=== PATIENT | female | born 1965 | race Caucasian/White ===

== ENCOUNTER 2020-07-18 14:22 | Inpatient (IN) | payer OTHER ==
[~2020-07-18] VITALS: Ht 165.1 cm; Wt 64.0 kg
[~2020-07-18 14:22] MED LIST: ADVAIR 250-501 EACH INH; ALBUTEROL2.5 MG/0.5 INH; ATIVAN0.5 MG PO; DYAZIDE 37.5-21 EACH PO; FLAGYL500 MG PO; FOLIC ACID1 MG PO; HYDROXYCHLOROQ200 M1 PO; IPRATROPIU0.2 MG/1 M INH; LEVAQUIN 750 M750 MG PO; METHOTREXA25 MG/1 M2 IM; MULTIVITAMINS PO; PREMARIN0.9 M1 PO; SINGULAIR 10 MG10 M1 PO; TRAMADOL 50 MG50 MG PO; VENTOLIN HFA 1818 GM INH; ZYRTEC10 MG PO
[2020-07-18 14:29] VITALS: BP 131/80
[2020-07-18 14:50] LABS: ABSOLUTE LYMPHOCYTES 0.8 thou/uL (0.8-5.3); ABSOLUTE MONOCYTES 0.8 thou/uL (0.0-1.2); ABSOLUTE NEUTROPHILS 7.9 thou/uL (1.6-8.1); BASOPHILS 0.2 %; EOSINOPHILS 0.2 %; HEMATOCRIT 41.9 % (37.0-47.0); HEMOGLOBIN 14.1 gm/dL (12.0-15.0); LYMPHOCYTES 8.2 %; MCH 31.5 pg (26.0-34.0); MCHC 33.8 g/dL (28.0-37.0); MCV 93.2 fL (80.0-100.0); MONOCYTES 7.9 %; MPV 7.3 fl. (7.2-11.1); NUCLEATED RBCS 0 /100WBC; PLATELET COUNT* 272 thou/uL (150-400); POLYS 83.5 %; RBC 4.49 mil/uL (4.20-5.00); RDW-CV 13.6 % (10.5-14.5); WBC 9.5 thou/uL (4.0-11.0)
[2020-07-18 14:59] LABS: CALCIUM 8.8 mg/dL (8.5-10.1); POTASSIUM 3.2 mmol/L (3.5-5.1)
[2020-07-18 15:10] LABS: ALBUMIN 3.7 g/dL (3.4-5.0); MAGNESIUM 1.7 mg/dL (1.8-2.4); TOTAL BILIRUBIN 0.4 mg/dL (<0.1-1.0); TOTAL PROTEIN 7.2 g/dL (6.4-8.2)
[2020-07-18 17:17] LABS: BE 2.2 mmol/L (-2 to +3); pH 7.454 (7.340-7.450)
[2020-07-18 17:19] LABS: PO2 55.6 mmHg (75.0-100.0)
[2020-07-18 19:29] VITALS: BP 139/70
[2020-07-18 20:00] VITALS: BP 110/61
[2020-07-18] MEDS ORDERED: RINVOQ ER15 MG PO (20:59)
[2020-07-18] MEDS ORDERED: OSTERA TABLET1 EAC1 PO (21:00)
[2020-07-18] MEDS ORDERED: PROBIOTIC1 EAC7 PO (21:01)
[2020-07-19] VITALS: BP 102/52
[2020-07-19 04:00] VITALS: BP 111/73
[2020-07-19 04:59] LABS: CALCIUM 8.5 mg/dL (8.5-10.1); CREATININE 0.7 mg/dL (0.6-1.3); MAGNESIUM 2.1 mg/dL (1.8-2.4); POTASSIUM 3.2 mmol/L (3.5-5.1)
[2020-07-19 08:00] VITALS: BP 112/55
[2020-07-19 12:00] VITALS: BP 131/56
[2020-07-19 16:00] VITALS: BP 126/64
--- NOTE | 2020-07-19 17:53 | EKG ---
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
[2020-07-19 20:00] VITALS: BP 106/61
[2020-07-20] VITALS: BP 99/49
[2020-07-20 04:00] VITALS: BP 97/52
[2020-07-20 04:42] LABS: HEMATOCRIT 37.1 % (37.0-47.0); HEMOGLOBIN 12.6 gm/dL (12.0-15.0); MCH 31.8 pg (26.0-34.0); MCHC 33.9 g/dL (28.0-37.0); MPV 7.2 fl. (7.2-11.1); RBC 3.95 mil/uL (4.20-5.00); RDW-CV 13.8 % (10.5-14.5); WBC 11.6 thou/uL (4.0-11.0)
[2020-07-20 05:00] LABS: CALCIUM 8.8 mg/dL (8.5-10.1); CREATININE 0.9 mg/dL (0.6-1.3); MAGNESIUM 2.2 mg/dL (1.8-2.4)
[2020-07-20 08:00] VITALS: BP 111/57
[2020-07-20] MEDS ORDERED: AZITHROMYCIN 2250 MG PO (09:21)
[2020-07-20] MEDS ORDERED: PREDNISONE 10 M10 MG PO (09:21)
[2020-07-20 11:08] LABS: BE 0.1 mmol/L (-2 to +3); PCO2 37.1 mmHg (35.0-45.0); PO2 84.2 mmHg (75.0-100.0); pH 7.431 (7.340-7.450)
[2020-07-20 11:22] VITALS: BP 111/57
== END 2020-07-20 11:55 | disposition home or self-care (01) | DRG 189 ==
LOC: M.ERS 14:22 → M.TBA-ER 17:35 → M.2W 17:35
PROVIDERS: Nurse Practitioner Family; ADMIT Internal Medicine; ATTEND Internal Medicine
DX: J96.01 Acute respiratory failure with hypoxia (principal); J45.41 Moderate persistent asthma with (acute) exacerbation; M06.9 Rheumatoid arthritis, unspecified; E87.6 Hypokalemia; Z20.828 Contact with and (suspected) exposure to other viral communicable diseases; F41.9 Anxiety disorder, unspecified; Z91.040 Latex allergy status; Z91.09 Other allergy status, other than to drugs and biological substances; Z90.710 Acquired absence of both cervix and uterus; Z90.722 Acquired absence of ovaries, bilateral; Z90.49 Acquired absence of other specified parts of digestive tract; Z79.899 Other long term (current) drug therapy

== ENCOUNTER → 2020-07-29 | Outpatient (CLI) | payer OTHER ==
[~2020-07-29] MED LIST changes: +AZITHROMYCIN 2250 MG PO; +OSTERA TABLET1 EAC1 PO; +PREDNISONE 10 M10 MG PO; +PROBIOTIC1 EAC7 PO; +RINVOQ ER15 MG PO
== END ==
LOC: M.LAB 16:24
PROVIDERS: ATTEND Internal Medicine Critical Care Medicine
DX: R06.02 Shortness of breath (principal)

== ENCOUNTER → 2020-07-30 | Outpatient (CLI) | payer OTHER ==
[2020-07-30 11:25] LABS: CREATININE 0.8 mg/dL (0.6-1.3)
== END ==
LOC: M.CT 10:55
PROVIDERS: ATTEND Internal Medicine Critical Care Medicine
DX: R06.02 Shortness of breath (principal); R79.89 Other specified abnormal findings of blood chemistry; L92.8 Other granulomatous disorders of the skin and subcutaneous tissue; D73.89 Other diseases of spleen

== ENCOUNTER → 2020-08-25 | Outpatient (CLI) | payer OTHER ==
--- NOTE | 2020-08-25 16:39 | EXE ---
[place] [address] STRESS ECHOCARDIOGRAM Name: LIDIA DOBBINS [id number] Admission: 08/25/20 Attend Phys: Juanita Umaña Discharge: Date of : 67 Date of Service: 08/25/20 1639 Report #: [id number] THIS REPORT FOR: cc: Hugh Horan Ahmad W. DO Blick, David R. MD [facility] ~ APPROVED REPORT Study performed: 08/25/2020 15:25:18 Exam: Dobutamine Stress Echo Indication: Chest pain , Dyspnea , Palpitations Patient Location: Out-Patient Stress Nurse: Juliana Moore RN Supervising Physician: Serjio Lindquist MD Ht: 5 ft 5 in HR: 90 bpm BP: 114/85 mmHg Medical History Cardiac Risk Factors: FHX of CAD Procedure The patient underwent a Pharmacological Stress Test using Dobutamine. Blood pressure, heart rate, and EKG were monitored. An Echocardiogram was performed by residential air sealing technician in four stages in quad fashion. At peak stress, four selected images were obtained and placed side by side with resting images for comparison. Stress Test Details Stress Test: Pharmacological Stress Test using Dobutamine. Reason for pharmacologic stress test: physical limitation. HR Resting HR: 90 bpm Max Heart Rate (APMHR): 166 bpm Max HR Achieved: 140 bpm Target HR (85% APMHR): 141 bpm % of APMHR: 84 Recovery HR: 87 bpm HR response to stress: Normal HR response to stress BP Resting BP: 114/85 mmHg Max BP: 143/63 mmHg Recovery BP: 134/78 [place] [address] STRESS ECHOCARDIOGRAM Name: LIDIA DOBBINS NITHIN Room: [facility]#: [id number] Admission: 08/25/20 Attend Phys: Juanita Umaña Discharge: Date of : 67 Date of Service: 08/25/20 1639 Report #: [id number] BP response to stress: Normal blood pressure response to stress. ECG Resting ECG: Sinus Rhythm Stress ECG: Sinus Tachycardia ST Change: Normal Maximum ST Deviation: 0 mm Arrhythmia: None Recovery ECG: Sinus Rhythm Recovery ST Change: Normal Recovery ST Deviation: 0 mm Recovery Arrhythmia: None Clinical Reason for Termination: Completed protocol Pre-Stress Echo The resting Echocardiogram showed normal left ventricular contractility with an estimated Ejection Fraction of about 55-60%. Post-Stress Echo The stress Echocardiogram showed normal left ventricular contractility with an estimated Ejection Fraction of about >70%. Compared to rest, there were no stress-induced wall motion abnormalities. Conclusion Clinical Response: Ischemic Exercise Capacity: Superior Stress ECG Response: Non-ischemic Stress Echo Images: Non-ischemic low risk stress echo for predicting future cardiac events Other Information Study Quality: Good <Conclusion> low risk stress echo for predicting future cardiac events <ELECTRONICALLY SIGNED> By: Serjio Lindquist MD, FACC 08/25/20 1639 38 38 Serjio Lindquist MD, FACC /INF
== END ==
LOC: M.CRD 14:33
PROVIDERS: ATTEND Internal Medicine
DX: R07.89 Other chest pain (principal); R06.00 Dyspnea, unspecified

== ENCOUNTER → 2020-11-18 | Outpatient (CLI) | payer OTHER ==
--- NOTE | 2020-11-26 12:10 | PF ---
[address] [address] PULMONARY FUNCTION REPORT Name: LIDIA DOBBINS [id number] Admission: 11/18/20 Attend Phys: Alin Live MD Discharge: Date of : 67 Report #: [id number] THIS REPORT FOR: cc: Hugh Horan Ahmad W. DO ~ Alin Live MD DATE OF SERVICE: 11/18/2020 The FEV1/FVC ratio is normal at 75% with an FVC normal at 109% and FEV1 normal at 104%. The WRW75-55 is also normal at 66%. After the administration of a bronchodilator, there is no significant change in the patient's FVC or FEV1. The ETV54-46 is within the normal range at baseline; however, there is a 36% increase in the JDN95-41 after the administration of a bronchodilator noted. The patient's post-bronchodilator FEV1 is 2.92 liters. The patient's flow volume loop is mildly concave upwards. The total lung capacity is normal at 105% with residual volume is minimally decreased to 79% with a DLCO as adjusted for hemoglobin normal at 90%. IMPRESSION: These are essentially normal pulmonary function tests. It is noted that there is an increase in FBM79-76 about 36% after the administration of a bronchodilator. The flow volume loop is also mildly concave upwards. Minimal obstruction if present can lead to these findings; however, no obvious obstruction is noted in these pulmonary function tests. <ELECTRONICALLY SIGNED> By: Alin Live MD 11/26/20 1210 1931 2010Alilia Live MD /nt
== END ==
LOC: M.PUL 11-16 12:00
PROVIDERS: ATTEND Internal Medicine Critical Care Medicine
DX: J45.40 Moderate persistent asthma, uncomplicated (principal)

== ENCOUNTER → 2020-12-14 | Outpatient (CLI) | payer OTHER ==
--- NOTE | 2021-01-04 08:43 | SLEEP ---
[address] [address] SLEEP STUDY REPORT Name: LIDIA DOBBINS Room: [facility]#: [id number] Admission: 12/14/20 Attend Phys: Alin Live MD Discharge: Date of : 67 Report #: [id number] THIS REPORT FOR: cc: Hugh Horan Ahmad W. DO Pervez, Adeel MD ~ This study has been reviewed in its entirety by a board certified sleep specialist DATE OF SERVICE: 12/14/2020 SLEEP STUDY INDICATION FOR SLEEP STUDY: Hypersomnia. INTERPRETATION: Total duration of the study is 469 minutes, out of which she was asleep for 408 minutes with an overall sleep efficiency of 86.9%. Sleep onset initially occurred around 25 minutes after lying down in bed and REM onset occurred 87 minutes after sleep onset. N1 sleep duration was 5%, N2 duration was 48%, N3 duration was 25% and the REM duration was 23%. We recorded occasional sleep related respiratory events. These included 2 central apneas, 1 obstructive apnea, 2 hypopneas and 24 respiratory effort related arousals. Overall, apnea-hypopnea index is normal at 0.7 with a respiratory disturbance index also normal at 4.3. Body position data indicates the patient was lying asleep in the supine position for 112 minutes. The rest of the time, the patient was in other positions. There is no positional variation identified. Mean heart rate was 79. Periodic limb movement index is only minimally elevated at 10.2. Overall, arousal index was mildly elevated to 28. O2 saturation is adequately maintained throughout this sleep study. IMPRESSION: There are some rare sleep related respiratory events recorded. Obstructive sleep apnea was not detected during the sleep study. O2 saturation is also adequately maintained during the sleep study. RECOMMENDATIONS: 1. We will plan to follow up in the office and evaluate further the patient's sleep complaints. 2. Recommend avoiding driving or other activities requiring vigilance [place] [address] SLEEP STUDY REPORT Name: LIDIA DOBBINS Room: [facility]#: [id number] Admission: 12/14/20 Attend Phys: Alin Live MD Discharge: Date of : 67 Report #: [id number] This entire sleep study was reviewed by a board certified sleep physician. <ELECTRONICALLY SIGNED> By: Alin Live MD 01/04/21 0843 1727 1759Alilia Live MD /nt
== END ==
LOC: M.SLEEPLAB 11-03 20:00
PROVIDERS: ATTEND Internal Medicine Critical Care Medicine
DX: G47.10 Hypersomnia, unspecified (principal)

== ENCOUNTER → 2021-08-22 | Outpatient (CLI) | payer OTHER ==
--- NOTE | 2021-08-22 15:43 | 2DMMODE ---
[place] [address] 2 D/M-MODE ECHOCARDIOGRAM Name: LIDIA DOBBINS Room: [facility]#: [id number] Admission: 08/22/21 Attend Phys: Alin Live MD Discharge: Date of : 67 Date of Service: 08/22/21 1543 Report #: [id number] THIS REPORT FOR: cc: Hugh Horan Ahmad W. DO Holkins,Oscar Hurtado MD [facility] ~ APPROVED REPORT Study performed: 08/22/2021 14:41:36 EXAM: Comprehensive 2D, Doppler, and color-flow Echocardiogram Patient Location: Out-Patient BSA: 1.74 HR: 84 bpm BP: 112/60 mmHg Other Information Study Quality: Good Indications Dyspnea 2D Dimensions IVSd: 9.01 (7-11mm) LVOT Diam: 18.67 (18-24mm) LVDd: 37.47 mm PWd: 8.70 (7-11mm) Ascending Ao: 25.05 (22-36mm) LVDs: 23.20 (25-40mm) Aortic Root: 28.53 mm Volumes Left Atrial Volume (Systole) LA ESV Index: 10.90 mL/m2 Aortic Valve AoV Peak Grady.: 1.30 m/s AO Peak Gr.: 6.71 mmHg LVOT Max P.62 mmHg AO Mean Gr.: 3.73 mmHg LVOT Mean P.88 mmHg LVOT Max V: 1.19 m/s AO V2 VTI: 22.34 cm LVOT Mean V: 0.79 m/s RAÚL (VTI): 2.95 cm2 LVOT V1 VTI: 24.10 cm Mitral Valve E/A Ratio: 0.98 [place] [address] 2 D/M-MODE ECHOCARDIOGRAM Name: LIDIA DOBBINS Room: [facility]#: [id number] Admission: 08/22/21 Attend Phys: Alin Live MD Discharge: Date of : 67 Date of Service: 08/22/21 1543 Report #: [id number] MV Decel. Time: 246.56 ms MV E Max Grady.: 0.64 m/s MV PHT: 71.50 ms MVA (PHT): 3.08 cm2 TDI E/Lateral E': 4.00 E/Medial E': 4.92 Medial E' Grady.: 0.13 m/s Lateral E' Grady.: 0.16 m/s Pulmonary Valve PV Peak Grady.: 1.09 m/s PV Peak Gr.: 4.76 mmHg Tricuspid Valve RAP Estimate: 5.00 mmHg TR Peak Gr.: 19.99 mmHg RVSP: 24.99 mmHg PA Pressure: 24.99 mmHg Left Ventricle The left ventricle is normal size. There is normal LV segmental wall motion. There is normal left ventricular wall thickness. Left ventricular systolic function is normal. The left ventricular ejection fraction is within the normal range. LVEF is 55-60%. Right Ventricle The right ventricle is normal size. The right ventricular systolic function is normal. Atria The left atrium size is normal. The right atrium size is normal. Aortic Valve Mild aortic valve sclerosis. No aortic regurgitation is present. There is no aortic valvular stenosis. Mitral Valve The mitral valve is normal in structure. Trace mitral regurgitation. No evidence of mitral valve stenosis. Tricuspid Valve The tricuspid valve is normal in structure. Mild tricuspid regurgitation. Pulmonic Valve The pulmonary valve is normal in structure[place] [address] 2 D/M-MODE ECHOCARDIOGRAM Name: LIDIA DOBBINS Room: [facility]#: [id number] Admission: 08/22/21 Attend Phys: Alin Live MD Discharge: Date of : 67 Date of Service: 08/22/21 1543 Report #: [id number] valvular regurgitation. Great Vessels The aortic root is normal in size. IVC is normal in size and collapses >50% with inspiration. Pericardium There is no pericardial effusion. <Conclusion> The left ventricle is normal size. There is normal left ventricular wall thickness. Left ventricular systolic function is normal. The left ventricular ejection fraction is within the normal range. LVEF is 55-60%. The right ventricle is normal size. The left atrium size is normal. Mild aortic valve sclerosis. No aortic regurgitation is present. There is no aortic valvular stenosis. The mitral valve is normal in structure. Trace mitral regurgitation. The tricuspid valve is normal in structure. Mild tricuspid regurgitation. IVC is normal in size and collapses >50% with inspiration. There is no pericardial effusion. There is normal LV segmental wall motion. <ELECTRONICALLY SIGNED> By: Oscar Ellis MD, FACC 08/22/21 1543 1543 1543 Oscar Ellis MD, FACC /INF
== END ==
LOC: M.CRD 13:22
PROVIDERS: ATTEND Internal Medicine Critical Care Medicine
DX: I08.2 Rheumatic disorders of both aortic and tricuspid valves (principal); R60.0 Localized edema

== ENCOUNTER → 2021-08-30 | Outpatient (CLI) | payer OTHER ==
[2021-08-30 16:44] LABS: ABSOLUTE EOSINOPHILS 0.1 thou/uL (0.0-0.7); ABSOLUTE LYMPHOCYTES 1.3 thou/uL (0.8-5.3); ABSOLUTE MONOCYTES 0.8 thou/uL (0.0-1.2); ABSOLUTE NEUTROPHILS 4.3 thou/uL (1.6-8.1); BASOPHILS 0.5 %; EOSINOPHILS 0.8 %; HEMATOCRIT 41.1 % (37.0-47.0); HEMOGLOBIN 13.9 gm/dL (12.0-15.0); LYMPHOCYTES 20.1 %; MCH 31.4 pg (26.0-34.0); MCHC 33.7 g/dL (28.0-37.0); MCV 93.2 fL (80.0-100.0); MONOCYTES 12.4 %; NUCLEATED RBCS 0 /100WBC; PLATELET COUNT* 261 thou/uL (150-400); POLYS 66.2 %; RBC 4.41 mil/uL (4.20-5.00); RDW-CV 13.4 % (10.5-14.5); WBC 6.6 thou/uL (4.0-11.0)
[2021-08-30 16:53] LABS: APTT 28.6 Seconds (25.0-31.3); PROTIME 9.8 Seconds (9.20-11.50)
[2021-08-30 17:01] LABS: ALBUMIN 3.6 g/dL (3.4-5.0); CALCIUM 8.7 mg/dL (8.5-10.1); CREATININE 0.7 mg/dL (0.6-1.3); MAGNESIUM 1.9 mg/dL (1.8-2.4); POTASSIUM 3.4 mmol/L (3.5-5.1); TOTAL BILIRUBIN 0.5 mg/dL (<0.1-1.0); TOTAL PROTEIN 6.9 g/dL (6.4-8.2)
== END ==
LOC: M.LAB 16:07
PROVIDERS: ATTEND Internal Medicine Critical Care Medicine
DX: J45.40 Moderate persistent asthma, uncomplicated (principal); J30.9 Allergic rhinitis, unspecified; R60.0 Localized edema; R06.02 Shortness of breath